=== PATIENT | female | born 1955 | race Caucasian/White ===

== ENCOUNTER 2023-07-07 12:04 | Outpatient (CLI) | payer OTHER | END 2023-07-07 12:05 | disposition home or self-care (01) | LOC: CSHULT 12:04 | PROVIDERS: ATTEND Family Medicine | DX: E05.90 Thyrotoxicosis, unspecified without thyrotoxic crisis or storm (principal); E04.2 Nontoxic multinodular goiter | CPT/HCPCS: 76536 ==